=== PATIENT | female | born 1980 | race Caucasian/White ===

== ENCOUNTER 2020-10-24 16:58 | Emergency (ER) | payer MEDICAID ==
[~2020-10-24] VITALS: Ht 165.1 cm; Wt 65.0 kg
[2020-10-24] MEDS ORDERED: LEVETIRACETAM 500MG TABLET PO ONE (17:45)
[2020-10-24 20:00] VITALS: BP 126/74
== END 2020-10-24 20:25 | disposition home or self-care (01) ==
LOC: ER 16:58
DX: G40.909 Epilepsy, unspecified, not intractable, without status epilepticus (principal); B34.9 Viral infection, unspecified; F41.9 Anxiety disorder, unspecified; F32.9 Major depressive disorder, single episode, unspecified; Z20.828 Contact with and (suspected) exposure to other viral communicable diseases; Z91.041 Radiographic dye allergy status; Z91.040 Latex allergy status; Z88.6 Allergy status to analgesic agent; I49.9 Cardiac arrhythmia, unspecified
CPT/HCPCS: 71045; 87635; 93005; 99284; C9803; 99283

== ENCOUNTER 2020-10-27 19:25 | Emergency (ER) | payer MEDICAID ==
[~2020-10-27] VITALS: Ht 172.7 cm; Wt 83.0 kg
[2020-10-27 20:08] VITALS: BP 113/68
== END 2020-10-27 20:47 | disposition home or self-care (01) ==
LOC: ER 19:25
DX: F32.9 Major depressive disorder, single episode, unspecified (principal); R45.851 Suicidal ideations; F43.10 Post-traumatic stress disorder, unspecified; Z88.6 Allergy status to analgesic agent; Z91.041 Radiographic dye allergy status; Z91.040 Latex allergy status; Z98.1 Arthrodesis status
CPT/HCPCS: 99281